=== PATIENT | female | born 1960 | race Caucasian/White ===

== ENCOUNTER 2017-05-08 08:06 | Emergency (ER) | payer OTHER ==
[~2017-05-08] VITALS: Ht 165.1 cm; Wt 62.3 kg
[2017-05-08 08:08] VITALS: BP 136/84; PULSE 106; RESP 17; O2SAT 97
--- NOTE | 2017-05-08 08:20 | ED.REPORT ---
HPI-Chest Pain 40 and Over Date of Service May 08, 2017 ED Provider: Dr. Riley Talley Pt is a 56 year old female with a history of GERD who presents to the ED complaining of "4 intense heart beats" onset 1.5 hour ago while laying in bed. Pt c/o associated chest pressure that started after her palpitations and is 2/ 10 in severity. The pressure does not radiate. She denies SOB, nausea, diaphoresis, leg swelling, hemoptysis, or any other symptoms. She has had less severe symptoms previously for which she was worked up by her PCP. Nothing was found. She denies being on any medication at this time. She has no family hx of cardiac events. Nursing Notes Stated Complaint: PRESSURE IN CHEST Chief Complaint: Chest Pain Nursing Notes Reviewed: Yes Allergies: Coded Allergies: No Known Allergies (Unverified , 05/08/17) General Time Seen by MD: 08:20 Chief Complaint Other (Palpitations ) Hx Obtained From: Patient Arrived By: Walk-in Sudden in Onset?: Yes Onset Occurred: 1 - 4 hours ago Symptom Duration: Since onset Quality: Pressure Recent Healthcare: No recent doctor visit, No recent hospitalization Similar Sx Previous: Yes Risk Factors )( CAD Risk Stratification No Diabetes mellitus, No Hyperlipidemia, No Hypertension, No Known CAD, No Smoking Risk factors reviewed )( TAD Risk Stratification No Hypertension, No Risk factors reviewed )( PE Risk Stratification No Previous DVT, No Previous PE Risk factors reviewed Past Medical History Past Medical History Taking OTC zantac for GERD Mild depression (no meds) Low BP Reports: GERD Past Surgical History Right hand tendon surgery Family History Father had skin cancer Smoking History Unknown if Ever Smoker Social History Alcohol Use: "Social" (once a mo ) Drug Use: Denies drug use Ambulatory Status Independent Review of Systems Respiratory: Denies: Hemoptysis, Shortness of breath Cardiovascular: Reports: Chest pain, Palpitations GI: Denies: Nausea Musculoskeletal: Denies: Extremity swelling Skin: Denies Diaphoresis Complete sys rev & neg: except as marked. Physical Exam Initial Vital Signs Vital Signs (First) Date Time Temp Pulse Resp B/P Pulse Ox O2 Delivery O2 Flow Rate FiO2 05/08/17 08:08 36.1 106 17 136/84 97 Room Air Initial VS: Reviewed General/Constitutional: Awake, Alert, No acute distress, Well appearing, Well developed, Cooperative, Not toxic appearing Respiratory / Chest: Atraumatic, Breath sounds NL, Breath sounds = bilat, No respiratory distress Cardiovascular: Heart rate NL, Regular rhythm, Heart sounds NL Abdomen: Atraumatic, Soft, Non-tender Neck: Atraumatic, Supple, Full range of motion, No JVD Back: Atraumatic, Inspection NL, Full range of motion Lower Extremity / Pelvis / MS: Atraumatic, Inspection NL, Full range of motion , No edema Skin: Atraumatic, Color NL, No rash, Warm, Dry Neurologic: Oriented X3, Speech NL, No motor deficits, No sensory deficits Head / Eyes: Atraumatic, Normocephalic, PERRL, EOMI ENT: Atraumatic, Airway patent, Mucous membranes moist Interpretation & Diagnostics Lab Results Interpretation Result Diagram: 05/08/17 0910 05/08/17 0910 Test 05/08/17 09:10 White Blood Count 3.7th/mm3 (3.8-10.1) Red Blood Count 4.23mil/mm3 (3.90-5.20) Hemoglobin 13.0g/dL (12.0-15.6) Hematocrit 38.6% (35.0-46.0) Mean Corpuscular Volume 91.3fL (81-100) Mean Corpuscular Hemoglobin 30.7pg (27.0-35.0) Mean Corpuscular Hemoglobin Concent 33.7% (32.0-37.0) Red Cell Distribution Width 13.5% (12.3-15.4) Platelet Count 142bil/L (150-400) Neutrophils (%) (Auto) 61.2% (40-74) Lymphocytes (%) (Auto) 29.8% (14-46) Monocytes (%) (Auto) 8.0% (4-12) Eosinophils (%) (Auto) 0.5% (0-5) Basophils (%) (Auto) 0.5% (0-3) Sodium Level 139mEq/L (134-144) Potassium Level 3.7mEq/L (3.5-5.2) Chloride Level 103mEq/L (97-108) Carbon Dioxide Level 23mmol/L (18-29) Blood Urea Nitrogen 16mg/dL (6-24) Creatinine 0.54mg/dL (0.57-1.00) Estimat Glomerular Filtration Rate 167mL/min (>59) Glucose Level 95mg/dL (60-99) Calcium Level 9.0mg/dL (8.5-10.1) Magnesium Level 2.1mg/dL (1.6-2.6) Total Bilirubin 0.7mg/dL (0.0-1.2) Aspartate Amino Transf (AST/SGOT) 29U/L (0-50) Alanine Aminotransferase (ALT/SGPT) 22U/L (0-32) Alkaline Phosphatase 78U/L (25-150) Troponin T 0.010ug/L (0.0-0.011) Total Protein 7.1g/dL (6.4-8.4) Albumin 4.3g/dL (3.4-5.0) ECG Interpretation ECG Interpretation: Sinus rhythm rate 80 Time: 08:20 Interpreted by: ED physician X-Ray Chest Interpretation Chest Xray Interpretation: IMPRESSION: No acute cardiopulmonary disease process. Dictated by: Jeannette Harrison MD, PhD on 05/08/2017 at 9:23 Approved by: Jeannette Harrison MD, PhD on 05/08/2017 at 9:23 View: Portable, 1 view Interpretation / Wet Read by: Interpret - Radiologist Re-Eval/Medical Decision Med Decision/Clinical Course Overall nonspecific for acute coronary syndrome. Patient's symptoms has resolved. She feels better. Wishes to go home. Discussed the need for outpatient Holter monitor and provocative cardiac testing. Recommended daily aspirin until further cardiac testing can be done. Return and follow-up precautions given. Source of Hx: Old records Time of Eval: 10:07 Re-Evaluation/Progress Note: Rechecked pt. Discussed all results. Informed pt of plan for discharge. Pt understands and agrees with plan. F/U instruction and RTER warning given. All questions addressed. Differential Diagnosis: Positive: Acute coronary syndrome, Acute myocardial infarct, Bronchitis, Chest pain, Congestive heart failure, Dysrhythmia Counseled Regarding: Diagnosis, Lab results, Need for follow-up, When/why to return to ED Discharge & Departure Primary Impression: Chest pain Chest pain type: unspecified Qualified Code: R07.9 - Chest pain, unspecified Disposition: Home Discharge Condition All VS Reviewed: Yes Condition: Improved Patient Instructions: Angina (ED) Additional Instructions: Your workup in the ER is reassuring. Take 81 mg of aspirin daily. Call your doctor today for a follow-up appointment to schedule a possible Holter monitor and stress test. Return to the ER if you develop persistent or severe chest pains, trouble breathing, or any other concerns. Referrals: Alisson Montero MD (PCP) Scribe Attestation Portions of this note were transcribed by Elizabeth Bauman and Sotero Lang. I, Dr. Riley Talley personally performed the history, physical exam and medical decision-making; I reviewed and confirmed the accuracy of the information in the transcribed note. copies to: Alisson Montero MDMarquise Lindsey May 08, 2017 08:20 Elizabeth Bauman May 08, 2017 08:52 SOTERO LANG May 08, 2017 10:26
[2017-05-08] MEDS ORDERED: Ondansetron 2 mg/mL 2 mL Inj IVPUSH ONE (08:50)
[2017-05-08] MEDS ORDERED: LidocaineVisc 2%:Antacid 1:1 10 mL Syringe PO ONE (09:10)
[2017-05-08 09:15] LABS: BASOPHILS % (AUTO) 0.5 % (0-3); EOSINOPHILS % (AUTO) 0.5 % (0-5); Mean Corpuscular Hemoglobin 30.7 pg (27.0-35.0); Mean Corpuscular Volume 91.3 fL (81-100); NEUTROPHILS % (AUTO) 61.2 % (40-74); Platelet Count 142 bil/L (150-400)
[2017-05-08 09:25] VITALS: BP 128/82; PULSE 61; RESP 15; O2SAT 97
--- NOTE | 2017-05-08 09:25 | DRSVH ---
PROCEDURE: X-RAY CHEST ONE VIEW, PORTABLE ([id number]) INDICATIONS: chest pain TECHNIQUE: One view of the chest was acquired. COMPARISON: None. FINDINGS: Surgical changes and devices: None. Lungs and pleura: No pleural effusions or pneumothorax. Lungs are clear. Mediastinum: Mediastinal contours appear normal. Heart size is normal. Bones and chest wall: No suspicious bony lesions. Overlying soft tissues appear unremarkable. IMPRESSION: No acute cardiopulmonary disease process. Dictated by: Jeannette Harrison MD, PhD on 05/08/2017 at 9:23 Approved by: Jeannette Harrison MD, PhD on 05/08/2017 at 9:23
[2017-05-08 10:01] LABS: Magnesium 2.1 mg/dL (1.6-2.6); TROPONIN T 0.01 ug/L (0.0-0.011)
[2017-05-08 10:34] VITALS: BP 128/82; PULSE 61; RESP 15; O2SAT 97
== END 2017-05-08 10:35 | disposition home or self-care (01) ==
LOC: SED 08:06
DX: R07.89 Other chest pain (principal); K21.9 Gastro-esophageal reflux disease without esophagitis; F32.9 Major depressive disorder, single episode, unspecified